=== PATIENT | male | born 1950 | race Caucasian/White ===

== ENCOUNTER 2020-05-24 19:23 | Emergency (ER) | payer MEDICARE ==
[~2020-05-24] VITALS: Ht 170.2 cm; Wt 70.3 kg
[2020-05-24] MEDS ORDERED: AMLO5TAB9 PO (19:35)
[2020-05-24] MEDS ORDERED: TAMS-3 PO (19:35)
[2020-05-24] MEDS ORDERED: CLON1TAB PO (19:35)
[2020-05-24] MEDS ORDERED: LIDOCAINE 2% (UROJET) 10 ML JELLY MM ONE ×2 (19:40→19:45)
[2020-05-24] MEDS ORDERED: NITROFURANTOIN/NITROFURAN MAC 100 MG CAPSULE PO ONE (20:00)
[2020-05-24 20:01] LABS: *BILIRUBIN,URIN NEGATIVE (NEGATIVE); *BLOOD, URINE 3+ (NEGATIVE); *CLARITY,URINE CLOUDY (CLEAR); *COLOR,URINE YELLOW (YELLOW); *KETONES,URINE 1+ (NEGATIVE); *UROBILINOGEN,URINE 0.2 E.U./dl (NORMAL); LEUKOCYTE ESTERASE ,URINE NEGATIVE (NEGATIVE); NITRITE, URINE NEGATIVE (NEGATIVE); PH,URINE 7.5 (5.0-8.0); UGLUCOSE NEGATIVE (NEGATIVE)
--- NOTE | 2020-05-24 20:05 | NUR ---
Patel cath drained 800ml of clear pink urine. Leg bag placed and instructed patient on care of leg bag. All question answered.
[2020-05-24] MEDS ORDERED: NITROFURANTOIN/NITROFURAN MAC 100 MG CAPSULE ONE (20:30)
--- NOTE | 2020-05-24 20:38 | NUR ---
Patient discharged to home in stable condition with daughter taking patient home. Written and verbal after care instructions given. Patient verbalizes understanding of instructions. Stressed follow up or return to ER for worsening s/s.
[2020-05-24 20:39] VITALS: BP 109/66
[2020-05-24 21:38] LABS: BACTERIA,URINE NONE SEEN /HPF (NONE SEEN); RBC,URINE 20-50 /HPF (0-3); WBC,URINE 0-3 /HPF (0-3)
== END 2020-05-24 20:39 | disposition home or self-care (01) ==
LOC: ER 19:23
DX: N40.1 Benign prostatic hyperplasia with lower urinary tract symptoms (principal); R33.8 Other retention of urine; Z79.899 Other long term (current) drug therapy
CPT/HCPCS: 51702; 87086; A4663